=== PATIENT | male | born 1965 | race Caucasian/White ===

== ENCOUNTER 2016-09-20 19:18 | Emergency (ER) | payer OTHER ==
[~2016-09-20] VITALS: Ht 172.7 cm; Wt 86.2 kg
[2016-09-20 19:20] VITALS: BP 125/87
[2016-09-20] MEDS ORDERED: SILVER SULFADIAZINE CREAM 25 GM TUBE ONE ×2 (19:54→20:09)
[2016-09-20] MEDS ORDERED: HYDROCODONE/APAP 10/325MG 1 EA TABLET PO ONE (20:00)
[2016-09-20] MEDS ORDERED: SILVER SULFADIAZINE CREAM 25 GM TUBE TP ONE (20:00)
[2016-09-20] MEDS ORDERED: ONDANSETRON 4 MG TAB.RAPDIS SL ONE (20:00)
[2016-09-20] MEDS ORDERED: HYDROCODONE/APAP 10/325MG 1 EA TABLET ONE (20:09)
[2016-09-20] MEDS ORDERED: ONDANSETRON 4 MG TAB.RAPDIS ONE (20:09)
--- NOTE | 2016-09-20 20:24 | NUR ---
PT REFUSED NORCO AND YVONNE, STATING THAT HE TOOK A [employer]. WASTED WITH FREYA BERKOWITZ
== END 2016-09-20 20:26 | disposition home or self-care (01) ==
LOC: ER 19:18
DX: T23.152A Burn of first degree of left palm, initial encounter (principal); I10 Essential (primary) hypertension; J45.909 Unspecified asthma, uncomplicated; G40.909 Epilepsy, unspecified, not intractable, without status epilepticus; F41.9 Anxiety disorder, unspecified; X10.1XXA Contact with hot food, initial encounter; Y93.89 Activity, other specified; Y92.89 Other specified places as the place of occurrence of the external cause; Y99.8 Other external cause status
CPT/HCPCS: A4606; Q0162; Z7610

== ENCOUNTER 2018-07-12 17:29 | Emergency (ER) | payer OTHER ==
[~2018-07-12] VITALS: Ht 172.7 cm; Wt 81.2 kg
--- NOTE | 2018-07-12 17:43 | NUR ---
BIB SPOUSE, C/O SOB SINCE . HX OF ASTHMA. DENIES CP, DIZZINESS, N/V @ THIS TIME. PLACED ON MIXING MACHINE ATTENDANT. DR. HILLIARD @ BS FOR EVAL & WILL CONT TO MONITOR.
[2018-07-12] MEDS ORDERED: Magnesium 1GM/D5W 100ML PREMIX 200 ML IV ONE ×2 (17:47→18:00)
[2018-07-12] MEDS ORDERED: methylPREDNISolone SOD SUCC 125 MG/2ML VIAL ONE (17:59)
--- NOTE | 2018-07-12 17:59 | NUR ---
CALLED RT FOR BREATHING TREATMENT
[2018-07-12] MEDS ORDERED: ALBUTEROL FS 2.5 MG/3 ML VIAL.NEB NEB ONE (18:00)
[2018-07-12] MEDS ORDERED: IPRATROPIUM NEB FS 0.5 MG/2.5 ML AMPUL.NEB NEB ONE (18:00)
[2018-07-12] MEDS ORDERED: methylPREDNISolone SOD SUCC 125 MG/2ML VIAL IV ONE (18:00)
[2018-07-12 18:02] LABS: BASOPHILS # (AUTO) 0.1 /CMM (0.0-0.2); BASOPHILS % (AUTO) 0.8 % (0.0-2.0); EOSINOPHILS % (AUTO) 6.1 % (0.0-6.0); HEMATOCRIT 44 % (39-51); HEMOGLOBIN 15.2 g/dL (13.5-17.5); LYMPHOCYTES # (AUTO) 1.5 /CMM (0.8-4.8); LYMPHOCYTES % (AUTO) 16.2 % (20.0-44.0); MEAN CORPUSCULAR HGB CONC 34 g/dl (31.0-36.0); MEAN CORPUSCULAR VOLUME 92 fL (80-96); MONOCYTES % (AUTO) 11.2 % (2.0-12.0); NEUTROPHILS % (AUTO) 65.7 % (43.0-81.0); PLATELET COUNT (AUTO) 167 /CMM (150-450); RED BLOOD CELL COUNT(AUTO) 4.82 MIL/uL (4.5-6.0); WHITE BLOOD COUNT (AUTO) 9.1 K/uL (4.3-11.0)
[2018-07-12 18:04] VITALS: BP 147/95
--- NOTE | 2018-07-12 18:10 | NUR ---
PT STABLE, DENIES CP, SOB, NO RESP DISTRESS NOTED @ THIS TIME. WILL CONT TO MONITOR.
[2018-07-12 18:11] LABS: CARBON DIOXIDE 21 mmol/L (21-32); CHLORIDE 103 mmol/L (98-107); CREATININE 1.5 mg/dL (0.6-1.3); GLUCOSE 262 mg/dL (74-106); POTASSIUM 3.8 mmol/L (3.5-5.1); SODIUM SERUM 135 mmol/L (136-145); UREA NITROGEN, BLOOD 13 mg/dL (7-18)
--- NOTE | 2018-07-12 19:33 | NUR ---
CALLED NURSING SUP. FOR TELE BED
--- NOTE | 2018-07-12 19:51 | NUR ---
TELE 320-1
--- NOTE | 2018-07-12 20:19 | NUR ---
REPORT GIVEN TO WOO ABDUL FOR CONT OF CARE.
--- NOTE | 2018-07-12 20:49 | NUR ---
PT REFUSED TO BE ADMITTED & WANTS TO GO HOME INSTEAD. PT REFUSED TO SIGN AMA FORM, DR. HILLIARD AWARE. Patient discharged to home in stable condition. Written and verbal after care instructions given. Patient verbalizes understanding of instruction. IV removed. Catheter intact and site benign. Pressure and 4x4 applied to site. No bleeding noted. PT AMB WITH STEADY GAIT, NO RESP DISTRESS NOTED UPON LEAVING ED.
[2018-07-12] MEDS ORDERED: ALBUTEROL FS 2.5 MG/0.5 ML VIAL.NEB NEB PRN (21:00)
[2018-07-12] MEDS ORDERED: Z GUARD REMEDY 2 OZ OINT TP PRN (21:00)
[2018-07-12] MEDS ORDERED: ZOLPIDEM TARTRATE 5 MG TABLET PO PRN (21:00)
[2018-07-12] MEDS ORDERED: MAGNESIUM HYDROXIDE 30 ML UDC PO PRN (21:00)
[2018-07-12] MEDS ORDERED: HYDROCODONE/APAP 5/325MG 1 EACH TABLET PO PRN (21:00)
[2018-07-12] MEDS ORDERED: ACETAMINOPHEN 325 MG TABLET PO PRN (21:00)
[2018-07-12] MEDS ORDERED: IPRATROPIUM NEB FS 0.5 MG/2.5 ML AMPUL.NEB NEB PRN (21:00)
[2018-07-12] MEDS ORDERED: ONDANSETRON HCL/PF 4 MG/2 ML VIAL IVP PRN (21:00)
[2018-07-13] MEDS ORDERED: methylPREDNISolone SOD SUCC 125 MG/2ML VIAL IV SCH
== END 2018-07-12 20:21 | disposition other institution (70) ==
LOC: ER 17:31 → UNDOADMIN 19:55 → TELE 19:55
DX: J44.1 Chronic obstructive pulmonary disease with (acute) exacerbation (principal); E11.65 Type 2 diabetes mellitus with hyperglycemia; R00.0 Tachycardia, unspecified; R79.89 Other specified abnormal findings of blood chemistry; I10 Essential (primary) hypertension; F41.9 Anxiety disorder, unspecified; F17.210 Nicotine dependence, cigarettes, uncomplicated; Z60.2 Problems related to living alone
CPT/HCPCS: 36415; 71045; 80048; 84484; 85025; 93005; 94644; 96365; 96366; 96375; 99285; A4606; A6402; A6403; J2930; J3475